=== PATIENT | female | born 1990 | race Caucasian/White ===

== ENCOUNTER 2016-07-24 16:22 | Inpatient (IN) | payer OTHER ==
[~2016-07-24] VITALS: Wt 76.2 kg
--- NOTE | 2016-07-24 17:36 | DRSVH ---
PROCEDURE: US OB BIOPHYSICAL PROFILE AND UMBILICAL DOPPLER INDICATIONS: FAILED NST IN OFFICE OUTSIDE/PRIOR DATING DATA: Last menstrual period (LMP): Not known. LMP-based estimated date of delivery (MORE): Not applicable. First dating scan (date and location): 12/15/15. Estimated date of delivery (MORE) from first dating scan: 07/30/16. TECHNIQUE: Real-time scanning was performed of the fetus for biophysical profile, with image documentation. Col or and pulse Doppler interrogation was also performed of the umbilical artery near its insertion into the placenta. COMPARISON: None. FINDINGS: General: A single living intrauterine gestation is present. Presentation: Vertex Placenta: Not evaluated Amniotic fluid index: 9.4 cm, normal range is 5-24 cm. heart rate: 143 beats per minute. Maternal cervical canal: Not well-seen and not evaluated. Biophysical profile: Tone: 8 points. Movement: 8 points. Respiration: 8 points. Largest pocket of fluid: 8 points. Umbilical artery Doppler: SD ratio measured at 2.12, 2.21 and 3.41 IMPRESSION: 1. Biophysical profile score 8/8. 2. Cord Doppler SD ratio within normal limits with preservation of diastolic flow. Dictated by: Kelley Velasquez MD, PhD on 07/24/2016 at 17:29 Approved by: Kelley Velasquez MD, PhD on 07/24/2016 at 17:34
[2016-07-24] MEDS ORDERED: Lactated Ringer's 1,000 ML IV SCH (17:51)
[2016-07-24] MEDS ORDERED: Methylergonovine 0.2 mg/mL Inj IM PRN (17:55)
[2016-07-24] MEDS ORDERED: diphenhydrAMINE 50 mg Capsule PO PRN (17:55)
[2016-07-24] MEDS ORDERED: Ondansetron 2 mg/mL 2 mL Inj IVPUSH PRN (17:55)
[2016-07-24] MEDS ORDERED: Oxytocin 30 Units/500 mL LR 30 UNITS in IV Premix 1 EACH IV PRN (17:55)
[2016-07-24] MEDS ORDERED: Hemorrhage Kit, Post Partum XX ONE (17:55)
[2016-07-24] MEDS ORDERED: Carboprost 250 mCg/mL Inj IM PRN (17:55)
[2016-07-24] MEDS ORDERED: Sodium Chloride LOK Flush 10 mL Syringe IVFLUSH PRN (17:55)
[2016-07-24] MEDS ORDERED: fentaNYL-PF 50 mCg/mL 2 mL Inj IVPUSH PRN (17:55)
[2016-07-24] MEDS ORDERED: Oxytocin 10 Unit/mL Inj IM PRN (17:55)
--- NOTE | 2016-07-24 18:25 | PCM.HPOB ---
Subjective Referring Provider: Admitting Physician: Maranda Borden MD Primary Care Physician: [facility] Attending Physician: Maranda Borden MD History of Present History of Present Illness 25 y/o with GDM on metformin who was sent to the [facility] for nonreassuring FHT in the office. Her FHT was reactive in triage, but she continued to have intermittent variable decelerations and a prolonged variable deceleration with a contraction. So the decision was made to admit her for induction of labor for nonreassuring testing. Her blood glucose levels have been well controlled with metformin 500mg twice daily and diet. Her has otherwise been uncomplicated. labs: She is O+, antibody screen negative, varicella immune, rubella immune, RPR nonreactive, HIV negative, hepatitis B surface antigen negative, gonorrhea and chlamydia negative, GBS negative. OB History: (4), Para (3) Past Medical History Obstetrical History: X3 Gynecologic History: Noncontributory Medical History: Gestational diabetes controlled with oral medication Surgical History: None Hx Tobacco Use: No Smoking Status: Never Smoker Hx Alcohol Use: No Hx Substance Use: No Past Family History Living Arrangement: with Family Genetic Screening/Counseling Genetic Screening/Counseling: Negative Baby father-had child w defect: No Medications Home medications 1. Metformin 500 mg 1 by mouth twice a day. Allergy Coded Allergies: No Known Allergies (Unverified , 12/15/15) Exam Constitutional: Well-developed, Well-nourished, Normal habitus HEENT: Atraumatic Lungs: Clear to Auscultation Heart: Exam Unremarkable Abdomen: Gravid Neurological/Psychiatric: Alert, Oriented X3, Cooperative, No Acute Distress Additional Information On vaginal exam today she was 1 cm dilated 50% effaced -3 station and vertex. Soft and posterior position. Labs/Diagnostics Maternal Blood Type: O (positive) Hx Rho(D) Immune Globulin: Yes Antibody Screen: negative Group B Strep Results: Negative Previous Infant with GBS: No Rubella: Immune Lab History: Positive for: Hx Chicken Pox OB Intrapartum Assessment/Plan Problems: (1) 39 weeks gestation of Status: Acute ICD Code: Z3A.39 (2) GDM, class A2 Plan: Plan for induction of labor with Cytotec. I have explained the risks of induction with the patient and she has consented for induction of labor. Anticipate vaginal delivery. Status: Acute ICD Code: O24.414 Maranda Borden MD July 24, 2016 17:58
[2016-07-24 20:22] LABS: Mean Corpuscular Hemoglobin 27.2 pg (27.0-35.0); Mean Corpuscular Volume 82.2 fL (81-100)
[2016-07-24] MEDS: Misoprostol 25 mCg/0.25 Tablet VAGINAL SCH (20:26)
[2016-07-24] MEDS: Lactated Ringer's 1,000 ML IV PRN (20:27)
[2016-07-25] MEDS: Misoprostol 25 mCg/0.25 Tablet VAGINAL SCH (00:13)
[2016-07-25] MEDS: Lactated Ringer's 1,000 ML IV PRN ×2 (00:31→04:20)
[2016-07-25] MEDS ORDERED: Oxytocin 30 Units/500 mL LR 30 UNITS in IV Premix 1 EACH IV PRN (05:40)
--- NOTE | 2016-07-25 07:17 | PCM.PNOBIP ---
Subjective Date of Service July 25, 2016 Delivery plan: Spontaneous Vaginal Delivery Visit History 25 y/o with GDM on metformin who was sent to the [facility] for nonreassuring FHT in the office. Her FHT was reactive in triage, but she continued to have intermittent variable decelerations and a prolonged variable deceleration with a contraction. So the decision was made to admit her for induction of labor for nonreassuring testing. Her blood glucose levels have been well controlled with metformin 500mg twice daily and diet. Her has otherwise been uncomplicated. labs: She is O+, antibody screen negative, varicella immune, rubella immune, RPR nonreactive, HIV negative, hepatitis B surface antigen negative, gonorrhea and chlamydia negative, GBS negative. Subjective Patient has no complaints this morning. Gastrointestinal: No N/V Group B Strep Results: Negative Rubella: Immune Blood Type: O (positive) Labs Laboratory Tests 07/24/16 20:05: White Blood Count 6.6, Red Blood Count 4.67, Hemoglobin 12.7, Hematocrit 38.4, Mean Corpuscular Volume 82.2, Mean Corpuscular Hemoglobin 27.2, Mean Corpuscular Hemoglobin Concent 33.1, Red Cell Distribution Width 14.4, Platelet Count 189, Hematology Comments Exam Vital Signs Vital Signs Contraction frequency in minutes: 2 to 3 minutes Vital Signs: VS reviewed, stable Heart Tracings Heart Tones Baseline 140 bpm Heart Rate Variability: Moderate Heart Rate Accelleration: Present Heart Rate Deceleration: Absent Heart Rate Category: I Tocometry/IUPC Contraction frequency in minutes: MVUs: Sterile Vaginal Exam Cervical Dilation: 2 cms Cervical Effacement: 50 % Station: -3 Exam General: Alert, Oriented X3, Cooperative, No Acute Distress OB Intrapartum Assessment/Plan Problems: (1) 39 weeks gestation of Status: Acute ICD Code: Z3A.39 (2) GDM, class A2 Plan: Continue Pitocin Continue to monitor Status: Acute ICD Code: O24.414 Maranda Borden MD July 25, 2016 07:17
[2016-07-26] MEDS ORDERED: Oxytocin 30 Units/500 mL LR 30 UNITS in IV Premix 1 EACH IV PRN (08:00)
[2016-07-26] MEDS ORDERED: Lactated Ringer's 1,000 ML IV SCH (16:00)
[2016-07-26] MEDS ORDERED: Atropine 1 mg/10 mL (Code) Syringe IVPUSH PRN (16:00)
[2016-07-26] MEDS ORDERED: fentaNYL 2 mCg/mL-Bupiv 0.125% 100 ML EPIDURAL SCH (16:00)
[2016-07-26] MEDS ORDERED: EPHEDrine Sulfate 50 mg/mL Inj IVPUSH PRN (16:00)
[2016-07-26] MEDS ORDERED: Lactated Ringer's 500 ML IV ONE ×2 (16:00→16:15)
[2016-07-26] MEDS ORDERED: Ondansetron 2 mg/mL 2 mL Inj IVPUSH PRN (16:00)
[2016-07-26] MEDS: Sodium Chloride LOK Flush 10 mL Syringe IVFLUSH SCH (16:30)
--- NOTE | 2016-07-26 16:43 | PCM.HPANE ---
Patient Data Surgeon Admitting Provider:Maranda Borden MD Attending Provider:Maranda Borden MD Primary Care Physician:[facility] Other Provider:Man Winters Anesthesia Reason for Visit NST NST Ht/WT & BMI Body Mass Index Allergies Coded Allergies: No Known Allergies (Unverified , 12/15/15) Past Anesthesia History Anesthesia History: Denies:: Abnormal Airway, Anesthesia Reactions, Difficult Intubation, Fam Anesthesia Reaction, Fam Malignant Hypertherm, Malignant Hyperthermia Diabetes History Hx Diabetes?: No MRSA MRSA: No Medications Hypertension Medication: No Home Meds Incl Beta Tracy: No History History of ENT Problems?: No HEENT History: Denies:: Abnormal Airway Cataracts Difficult Intubation Dysphagia Glaucoma Hearing Problem Sinus Problem TMJ Denture Type: None Teeth Condition: Within Normal Limits Hx of Heart Problems?: No Cardiovascular History: Denies:: AICD Abdominal Aortic Aneurism Atrial Fibrillation Cardiac Surgery Chest Pain Congestive Heart Failure Coronary Artery Disease Edema Heart Murmur Hypertension Irregular Heartbeat Pacemaker Peripheral Vascular Rheumatic Fever Thrombophlebitis Valvular Heart Disease Hx of Respiratory Problem?: No Respiratory History: Denies:: Asthma COPD Chest Surgery Cough Dyspnea Emphysema Hemoptysis Oxygen Administration Pneumonia Pulmonary Embolism Tuberculosis Use of C-PAP Machine Use of Inhalers / NEBS Hx Neurologic Problems?: No Hx of GI Problems?: No Hx of Problems?: No Female Hx: Positive for:: Currently Hx Musculoskeletal Problems?: No Hx Surgeries?: No Hx Alcohol Use: NoHx Substance Use: No Smoking Status: Never Smoker Stop/Bang JUAN C Risk Assessment: Low Risk, <3 Yes Risk Assessment Category Category 1A: Patient has history of documented sleep apnea, and HAS NOT received any narcotic, sedative or anesthesia administration during this stay. Category 1B: Patient has history of documented sleep apnea, and HAS received any narcotic , sedative or anesthesia administration during this stay Category 2: Patient has SUSPECTED Obstructive Sleep Apnea, and HAS received any narcotic , sedative or anesthesia administration during this stay. Category 3: Patient has SUSPECTED Obstructive Sleep Apnea and HAS NOT received narcotic, sedative or anesthesia administration during this stay. Category 4: Outpatient in Procedural Areas with known sleep apnea or who screen positive for High Risk via the STOP/BANG questionnaire. Exam Exam General Appearance: Alert, Oriented X3, Cooperative, No Acute Distress HEENT/AIRWAY: MP 2 Lungs: Clear to Auscultation, Normal Air Movement Heart: Exam Unremarkable, Regular Rate/Rhythm, No Murmurs/Rubs/Gallops Meds/Labs/Diagnostics Labs Test 07/24/16 20:05 07/24/16 20:50 White Blood Count 6.6th/mm3 (3.8-10.1) Red Blood Count 4.67mil/mm3 (3.90-5.20) Hemoglobin 12.7g/dL (12.0-15.6) Hematocrit 38.4% (35.0-46.0) Mean Corpuscular Volume 82.2fL (81-100) Mean Corpuscular Hemoglobin 27.2pg (27.0-35.0) Mean Corpuscular Hemoglobin Concent 33.1% (32.0-37.0) Red Cell Distribution Width 14.4% (12.3-15.4) Platelet Count 189bil/L (150-400) Hematology Comments Blood Urea Nitrogen 10mg/dL (6-20) Creatinine 0.39mg/dL (0.57-1.00) Uric Acid 4.7mg/dL (2.6-7.2) Aspartate Amino Transf (AST/SGOT) 19U/L (0-50) Alanine Aminotransferase (ALT/SGPT) 11U/L (0-32) Plan Impression Patient chart reviewed, patient interviewed and anesthestic plan with risks, benefits, and alternatives discussed, and informed consent obtained. NPO per Anesth. Guidelines: Yes ASA Physical Status: ASA2 Mod Systemic Disease Anesthetic Plan: Epidural Bene/Risks/Altern/Consents: Yes HP Complete Prior to Induction: Yes Bebeto Mai MD Jul 26, 2016 16:01
[2016-07-27] MEDS: Lactated Ringer's 1,000 ML IV SCH ×2 (00:07→08:07)
[2016-07-27] MEDS ORDERED: Carboprost 250 mCg/mL Inj IM PRN (00:10)
[2016-07-27] MEDS ORDERED: Benzocaine (Dermoplast) 20% 60 Gm Spray TOPICAL PRN (00:10)
[2016-07-27] MEDS ORDERED: Hemorrhage Kit, Post Partum XX ONE (00:10)
[2016-07-27] MEDS ORDERED: LANOlin HPA 7 Gm Ointment TOPICAL PRN (00:10)
[2016-07-27] MEDS ORDERED: Oxytocin 30 Units/500 mL LR 30 UNITS in IV Premix 1 EACH IV PRN (00:10)
[2016-07-27] MEDS ORDERED: Methylergonovine 0.2 mg/mL Inj IM PRN (00:10)
[2016-07-27] MEDS ORDERED: Witch Hazel-Glycerin Pads TOPICAL PRN (00:10)
[2016-07-27] MEDS ORDERED: Oxytocin 10 Unit/mL Inj IM PRN (00:10)
[2016-07-27] MEDS: Sodium Chloride LOK Flush 10 mL Syringe IVFLUSH SCH ×2 (00:30→08:30)
--- NOTE | 2016-07-27 02:57 | PCM.ANEP1 ---
Post Anesthesia PACU Phase 1 Assessment Vital Signs see RN notes for VS Anesthetic Administered: Epidural Level of Alertness: Awake, talking LESLIE's with Equal Strength: Yes Pain: No Nausea or Vomiting: No CV Function & Hydration Stable: Yes Airway Device: none Oxygen Delivery: Room Air Lungs: Clear to Auscultation, Normal Air Movement PACU Phase 2 Assessment Complications: No Follow up Care: N/A Patient Instructions Provided: N/A Bebeto Mai MD Jul 27, 2016 02:57
[2016-07-27] MEDS ORDERED: IBUP800T28 PO (07:44)
--- NOTE | 2016-07-27 07:44 | PCM.DIOB ---
Obstetrical Disch Instruction Dates of Hospitalization Date of Hospital Admission July 24, 2016 at 17:49 Providers Admitting Physician: Maranda Borden MD Primary Care Physician: [facility] Attending Physician: Maranda Borden MD Discharge Diagnosis Problems: (1) 39 weeks gestation of Plan: Please call with severe pain, temperature >100.5 degrees, heavy vaginal bleeding or malodorous vaginal discharge Status: Acute ICD Code: Z3A.39 (2) GDM, class A2 Plan: You can quit checking your blood sugars but you will need to complete another diabetes screen when you are 6 weeks Status: Acute ICD Code: O24.414 Diet Discharge Diet: No restrictions Activity Discharge Activity-General: Pelvic Rest for 6 weeks, Balance rest and activity , Activity as energy allows, No lifting >10 pounds for 4-6 weeks Dressing and Incisional Care Hygiene: May shower, NO bathtub, hot tub or whirlpool, Perineal care, Sitz bath , Dermoplast spray, Witch Betzy pads, Ice Follow Up Plan Follow-up appointment: Weeks (6) Call your provider for: Fever or Chills, Shortness of breath, Heavy vaginal bleeding Fouzia Weir MD Jul 27, 2016 07:44
[2016-07-27] MEDS ORDERED: DOCU-41 PO (07:45)
--- NOTE | 2016-07-27 08:24 | DIS ---
[address] [address] DISCHARGE SUMMARY PATIENT: HEMA RODRIGEZ : 1990 MR#: [id number] ADMIT: 07/24/2016 JOB ID: [id number] DIS: 07/27/2016 ADMISSION DIAGNOSES: A 25-year-old G 4, P 3-0-0-3 female with gestational diabetes mellitus A2, controlled on metformin with nonreassuring heart tones admitted for an induction of labor. DISCHARGE DIAGNOSIS: A 25-year-old G 4, P 3-0-0-3 female with gestational diabetes mellitus A2, controlled on metformin with nonreassuring heart tones admitted for an induction of labor. PROCEDURE PERFORMED: Spontaneous vaginal delivery. REASON FOR ADMISSION: This 25-year-old G 4, P 3-0-0-3 female who presents to the clinic for a nonstress test for management of her gestational diabetes mellitus A2, controlled on metformin. Her heart tones were reactive in the office. However, she was noted to have intermittent variable decelerations and prolonged variable decelerations on contractions. Because of this, the patient was then sent over to the Center for an admission due to nonreassuring heart tones in the setting of DM A2. Her was otherwise uncomplicated. Her blood type was O positive. Antibody screen negative, rubella immune, varicella immune, hep B surface antigen negative, RPR nonreactive, HIV negative and GBS negative. HOSPITAL COURSE: The patient was admitted and underwent an induction of labor. Her cervix was not favorable. She was 1 cm dilated at the time of admission, so cervical ripening was started with Cytotec. This then progressed and she was then started on Pitocin per protocol when her cervix was favorable. She went on to deliver a live born male infant. Please see the operative report for full details regarding this. By day #1, her pain was well controlled. She was tolerating a regular diet, voiding and ambulating well on her own. LABORATORY DATA: Collected on day one showed a white count of 6.6, hemoglobin 12.7, and platelet count of 189. At this point in time, she was deemed stable for discharge. INSTRUCTIONS AT DISCHARGE: The patient was advised to remain at pelvic rest for six weeks including no tampons, douching, intercourse. She was asked to call with any signs or symptoms of infection including fever greater than 100.5 degrees, severe pain, malodorous vaginal discharge or bleeding greater than one pad per hour. MEDICATIONS AT DISCHARGE: Included ibuprofen 800 mg p.o. q.8 hours p.r.n. pain as well as Colace 100 mg p.o. b.i.d. All questions and concerns of the patient were answered. She was O positive, rubella immune and varicella immune. Did not need any vaccinations. She will return at six weeks at which point, a diabetes screen for overt type 2 diabetes mellitus will be completed and she was deemed stable for discharge on day #1.
[2016-07-27 09:12] VITALS: BP 124/72; PULSE 67; RESP 18
--- NOTE | 2016-07-27 09:26 | OP ---
[address] [address] OPERATIVE REPORT PATIENT: HEMA RODRIGEZ : 1990 MR#: [id number] ADMIT: 07/24/2016 JOB ID: [id number] DATE OF SURGERY: 07/26/2016 SURGEON: Alison Will M.D. PREOPERATIVE DIAGNOSIS(ES): POSTOPERATIVE DIAGNOSIS(ES): DELIVERY: A 25-year-old female. She is now 4, para 4 at 39 weeks . She was sent to [facility] for induction of labor for GBM A2 and a category 2 tracing. She was given Cytotec x2 and a ripening balloon for cervical ripening. When I presented for my shift this morning at 7 o'clock, the patient was re-examined. At that time, she was 3-4 cm dilated, 40% effaced, -3, softer cervix. At that time, decision was made to start her on Pitocin induction. She made no cervical change when I re-examined her at 12 a.m. At that time, AROM was performed and noticed clear amniotic fluid and I continued to have her to have Pitocin induction. She did not get appropriate contractions due to variable decels with contractions, but the patient still felt more pain with labor and requested for epidural. After epidural was placed, Pitocin was stopped because of category 2 tracing. Pitocin was restarted around 7-8 o'clock. She was re-examined at 8 o'clock and she was noted to be 8 cm dilated. Adequate contraction was not achieved because of category 2 tracing, but the patient progressed to full dilation with not frequent contractions and she started to have urge to push. During pushing with the patient, subjectively she feels warm but multiple temperatures were taken. She has no fever and there is no maternal tachycardia and there is no tachycardia but category 2 tracing mostly with variable decelerations with contraction and recovered well between contractions, with moderate variabilities. Vacuum assisted delivery was prepared and discussed with the patient if baby could not deliver in a short period time because of the category 2 tracing, but the patient has very good effort to push and the was delivered at SHIV position. The shoulder and chest delivered without difficulty. After the baby delivered, the tone was not perfect and there was no spontaneous cry of the baby. Clamped and cut immediately. There was one round nuchal cord loose and reduced. The infant was handed to the awaiting industrial commercial groundskeeper to the warmer for resuscitation. The placenta delivered spontaneously completely and examined with three-vessel cord. After delivery of placenta, uterus is well contracted. The perineum examined with no laceration. The EBL during the delivery was 100 cc. All instruments, needles, laps and gauzes counted correct twice. The patient score was not available at dictation. The weight was not available at dictation. Cord blood gas sent and the arterial pH was 7.274 and the C base was -3.7.
--- NOTE | 2016-07-31 16:03 | PATH ---
SURGICAL PATHOLOGY Attending Physician:Alison Will MD CASE STATUS: Signed Out PATIENT NAME: HEMA RODRIGEZ PID: [id number] : 1990 DATE COLLECTED:07/26/2016 00:00 SPECIMEN: Placenta CLINICAL HISTORY: GDM, ? CHORIOAMNIONITIS 1). PLACENTA FINAL DIAGNOSIS: Koenig Placenta: Placenta parenchyma. Weight: 409 grams. Chorionic villous maturation is slightly less mature than for stated gestational age. Moderate inter- and intravillous fibrin is present. No villitis identified. Umbilical cord: Length: 1.2 cm. Attached 5.2 cm from the placental disc margin. Three vessels are present. No funisitis identified. Membranes: Ruptured 3.7 cm from the placental disc margin. Focal, mild chorioamnionitis is present. ICD10: O41.1 GROSS DESCRIPTION: The specimen is received in formalin, labeled with the patient's name and consists of an intact placenta and includes placental disc (409 g, 15.5 x 15.5 x 2.6 cm), umbilical cord (length-1.2 cm, diameter-1.5 x 0.6 cm) and membranes. The membranes are ruptured 3.7 cm from the free edge of the placenta and are semi-translucent. The umbilical cord is attached 5.2 cm from the edge of the placenta and contains 3 vessels. The surface is smooth and shiny with no evidence of meconium. The maternal surface is dark maroon with normal cotyledon formation. The placental disc is spongy with no hematomas, infarcts, nodules, masses, or lesions identified. Section code: (A) edge of placenta with membranes; (B) umbilical cord; (C-F) placenta, 4 full thickness sections. 07/29/16 ICD-9 CODES: CPT CODES: 1: 67278 Electronically Signed Out Yudelka Roach MD [facility] Pathology [facility], [place] [address] Technical component performed at [facility], [facility] [address], [place], [address]
== END 2016-07-27 11:51 | disposition home or self-care (01) | DRG 560 ==
LOC: FBCO 16:22 → FBC 17:49 → UNDODISIN 07-26 14:46
PROVIDERS: ADMIT Obstetrics & Gynecology; ATTEND Obstetrics & Gynecology
PROC: 3E0P7GC Introduction of Other Therapeutic Substance into Female Reproductive, Via Natural or Artificial Opening (ICD-10-PCS; 2016-07-24)
PROC: 10E0XZZ Delivery of Products of Conception, External Approach (ICD-10-PCS; principal; 2016-07-26)
PROC: 10907ZC Drainage of Amniotic Fluid, Therapeutic from Products of Conception, Via Natural or Artificial Opening (ICD-10-PCS; 2016-07-26)
DX: O76 Abnormality in fetal heart rate and rhythm complicating labor and delivery (principal); O24.414 Gestational diabetes mellitus in pregnancy, insulin controlled; Z3A.39 39 weeks gestation of pregnancy; Z37.0 Single live birth; O69.81X0 Labor and delivery complicated by cord around neck, without compression, not applicable or unspecified

== ENCOUNTER 2016-09-20 17:51 | Emergency (ER) | payer OTHER ==
[~2016-09-20] VITALS: Ht 167.6 cm; Wt 71.4 kg
[~2016-09-20 17:51] MED LIST: DOCU-41 PO; IBUP800T28 PO
[2016-09-20 18:06] VITALS: BP 128/83; PULSE 67; RESP 18; O2SAT 99
--- NOTE | 2016-09-20 19:50 | ED.REPORT ---
HPI-General Illness Date of Service Sep 20, 2016 ED Provider: Lucas Tate MD A 25 year old female with a history of gestational diabetes presents to the ED complaining of RUQ abdominal pain that began this morning. The pain radiates from her abdomen to her back and right shoulder, up to her head. Associated symptoms include nausea and dizziness. The pain is exacerbated by inspiration but not by eating. She reports similar symptoms previously but never this severe. Patient denies any recent fever or vomiting. Nursing Notes Stated Complaint: HEAD PAIN Chief Complaint: Female Abdominal Pain Nursing Notes Reviewed: Yes Allergies: Coded Allergies: No Known Allergies (Unverified , 12/15/15) Scheduled PRN Docusate Sodium (Colace) 100 Mg Capsule 100 MG PO BID PRN PRN For Constipation Ibuprofen (Ibuprofen) 800 Mg Tablet 800 MG PO TID PRN PRN For Pain General Time Seen by MD: 19:49 Chief Complaint Abdominal pain Hx Obtained From: Patient Arrived By: Walk-in Sudden in Onset?: No Onset Occurred: 9 - 12 hours ago Symptom Duration: Since onset Location: : Abdomen Quality: Painful Radiation: : Back: Jaw Severity: Current: Moderate Severity: Maximum: Moderate Associated with: Reports: Dizziness, Nausea, Denies: Fever, Vomiting Pertinent Negative: Pt denies other symptoms Recent Healthcare: No recent doctor visit, No recent hospitalization Past Medical History Past Medical History Gestational Diabetes Past Surgical History None reported. Smoking History Never Smoker Social History Alcohol Use: Denies alcohol use Drug Use: Denies drug use Other Social History: Good social support, , From out of [facility] Ambulatory Status Independent Review of Systems Full Review of Systems Constitutional: Denies: Fever GI: Reports: Abdominal pain, Nausea, Denies: Vomiting Neurologic: Reports: Dizziness Complete sys rev & neg: except as marked. Physical Exam Vital Signs Vital Signs Date Time Temp Pulse Resp B/P Pulse Ox O2 Delivery O2 Flow Rate FiO2 09/20/16 18:06 36.9 67 18 128/83 99 Room Air Initial VS: Reviewed Neck: Supple, Non-tender, Full range of motion Extremities: Vascular intact, Neuro intact, No swelling, No tenderness Skin: Warm, Dry, No cyanosis Neurologic: Alert, Oriented, Nonfocal Psychiatric: Mood/affect normal, Behavior normal, Normal thought content General/Constitutional: Awake, Alert, No acute distress Head / Eyes: Atraumatic, Normocephalic, PERRL Respiratory / Chest: Atraumatic, Breath sounds NL, Breath sounds = bilat, No respiratory distress Cardiovascular: Heart rate NL, Regular rhythm, Heart sounds NL Abdomen: Atraumatic, Soft, McBurney's non-tender, No guarding, No palpable mass , No pulsatile mass Patient reports pain in the right chest/upper abdomen with inspiration Interpretation & Diagnostics Lab Results Interpretation Result Diagram: 09/20/16205409/20/162054 Test 09/20/16 20:55 White Blood Count 6.4th/mm3 (3.8-10.1) Red Blood Count 4.84mil/mm3 (3.90-5.20) Hemoglobin 13.2g/dL (12.0-15.6) Hematocrit 39.7% (35.0-46.0) Mean Corpuscular Volume 82.0fL (81-100) Mean Corpuscular Hemoglobin 27.3pg (27.0-35.0) Mean Corpuscular Hemoglobin Concent 33.2% (32.0-37.0) Red Cell Distribution Width 13.8% (12.3-15.4) Platelet Count 289bil/L (150-400) Neutrophils (%) (Auto) 47.6% (40-74) Lymphocytes (%) (Auto) 41.0% (14-46) Monocytes (%) (Auto) 7.4% (4-12) Eosinophils (%) (Auto) 3.3% (0-5) Basophils (%) (Auto) 0.5% (0-3) Sodium Level 137mEq/L (134-144) Potassium Level 3.9mEq/L (3.5-5.2) Chloride Level 97mEq/L (97-108) Carbon Dioxide Level 22mmol/L (18-29) Blood Urea Nitrogen 13mg/dL (6-20) Creatinine 0.45mg/dL (0.57-1.00) Estimat Glomerular Filtration Rate 239mL/min (>59) Glucose Level 90mg/dL (60-99) Calcium Level 10.1mg/dL (8.5-10.1) Total Bilirubin 0.3mg/dL (0.0-1.2) Aspartate Amino Transf (AST/SGOT) 58U/L (0-50) Alanine Aminotransferase (ALT/SGPT) 90U/L (0-32) Alkaline Phosphatase 41U/L (25-150) Troponin T 0.010ug/L (0.0-0.011) Total Protein 7.9g/dL (6.4-8.4) Albumin 4.3g/dL (3.4-5.0) Hold [place] Top Tube Received (Received) X-Ray Chest Interpretation Chest Xray Interpretation: IMPRESSION: 1. No acute cardiopulmonary disease. Dictated by: Paramjit Sharp M.D. on 09/20/2016 at 20:34 Interpretation / Wet Read by: Interpret - Radiologist US Focused Biliary Gallbladder contracted 2.8 mm Fatty infiltrate of liver Re-Eval/Medical Decision Time of Eval: 22:03 Patient Status: Condition improved Re-Evaluation/Progress Note: Pain has improved. She is informed of her results and diagnosis. All questions are addressed at this time. She understands and agrees with the intended treatment plan. Counseled Regarding: Diagnosis, Lab results, Need for follow-up, When/why to return to ED Discharge & Departure Primary Impression: Abdominal pain Abdominal location: right upper quadrant Qualified Code: R10.11 - Right upper quadrant pain Additional Impression: Nonalcoholic hepatosteatosis Disposition: Home Discharge Condition All VS Reviewed: Yes Condition: Improved Patient Instructions: Acute Abdominal Pain (ED) Additional Instructions: Thank you for trusting us with you care this evening. Your emergency department evaluation today including lab work, EKG, chest X-ray and ultrasound are reassuring that there is no emergent cause for concern at this time. Your ultrasound did reveal fatty infiltrate on your liver and I recommend that you have this followed up with the referred primary care physician. Schedule a follow up with your primary care physician in the next week for a recheck. Take 2-3 200 mg of ibuprofen every 8 hours as needed for pain. Please return to the emergency department for any new or worsening symptoms including fever, chills, yellow skin or eyes, nausea, vomiting, worsening pain, lightheadedness, or weakness. Referrals: Nir Tariq MD Scribe Attestation Portions of this note were transcribed by Robert Lawson. I, Dr. Tate personally performed the history, physical exam and medical decision-making; I reviewed and confirmed the accuracy of the information in the transcribed note. copies to: Nir Tariq MD, Kirk H MD Sep 20, 2016 19:50 [facility] Sep 20, 2016 20:02 Lucas Tate MD Sep 20, 2016 19:50 [facility] Sep 20, 2016 20:02
--- NOTE | 2016-09-20 20:36 | DRSVH ---
PROCEDURE: X-RAY CHEST, TWO VIEWS ([id number]) INDICATIONS: right chest/abd pain TECHNIQUE: 2 views of the chest were acquired. COMPARISON: None. FINDINGS: Surgical changes and devices: None. Lungs and pleura: No pleural effusions or pneumothorax. Lungs are clear. Mediastinum: Mediastinal contours are normal. Heart size is normal. Bones and chest wall: No suspicious bony abnormalities. Soft tissues appear unremarkable. IMPRESSION: 1. No acute cardiopulmonary disease. Dictated by: Paramjit Sharp M.D. on 09/20/2016 at 20:34 Approved by: Paramjit Sharp M.D. on 09/20/2016 at 20:34
[2016-09-20 21:36] LABS: BASOPHILS % (AUTO) 0.5 % (0-3); EOSINOPHILS % (AUTO) 3.3 % (0-5); MONOCYTES % (AUTO) 7.4 % (4-12); Mean Corpuscular Hemoglobin 27.3 pg (27.0-35.0); NEUTROPHILS % (AUTO) 47.6 % (40-74); Platelet Count 289 bil/L (150-400)
[2016-09-20 21:59] LABS: TROPONIN T 0.01 ug/L (0.0-0.011)
--- NOTE | 2016-09-20 22:15 | DRSVH ---
PROCEDURE: US ABDOMEN ([id number]) INDICATIONS: RUQ pain TECHNIQUE: Real-time scanning was performed of the abdominal and retroperitoneal organs, with image documentatio n. COMPARISON: None. FINDINGS: Liver: Liver is normal in size and increased in echogenicity consistent with fatty infiltration. Gallbladder: There is incomplete distention of the gallbladder with mild associated wall thickening m easuring to 3 mm. No gallstones or pericholecystic fluid. Biliary ducts: Intrahepatic bile ducts are non-dilated. Extrahepatic bile duct caliber measures up to 4 mm. Normal is 6-7 mm or less in diameter, or 10 mm or less post-cholecystectomy. Pancreas: Visualized portions of the pancreas are sonographically normal. Spleen: Spleen is normal in size and homogeneous in echotexture. Kidneys: Kidneys are normal in size and echotexture. Right kidney measures 9.3 cm long; left kidney measures 10.2 cm long. No hydronephrosis. Aorta: Visualized aorta is normal in caliber at less than 3 cm. Iliacs: Proximal common iliac arteries are normal in caliber at less than 2.5 cm. IVC: Intrahepatic inferior vena cava is patent. Miscellaneous: No free abdominal fluid. IMPRESSION: 1. No cholelithiasis or definite evidence of cholecystitis. 2. Increased hepatic echogenicity compatible with steatosis. Dictated by: Paramjit Sharp M.D. on 09/20/2016 at 22:10 Approved by: Paramjit Sharp M.D. on 09/20/2016 at 22:13
[2016-09-20 22:25] VITALS: BP 130/74; PULSE 70; RESP 16; O2SAT 99
== END 2016-09-20 22:00 | disposition home or self-care (01) ==
LOC: SED 17:51
DX: R10.11 Right upper quadrant pain (principal); K76.0 Fatty (change of) liver, not elsewhere classified